=== PATIENT | female | born 1960 | race Caucasian/White ===

== ENCOUNTER 2019-06-17 13:26 | Day surgery (SDC) | payer OTHER ==
[2019-06-17] MEDS ORDERED: Depo-Medrol 40 MG/ML IM ONE (13:27)
[2019-06-17] MEDS ORDERED: Marcaine 0.5% SDV 10 ML IM ONE (13:27)
[2019-06-17] MEDS ORDERED: Xylocaine 1% Vial 30 ML PF IJ ONE (13:27)
--- NOTE | 2019-06-17 16:21 | XRAY ---
Indication: Left knee injection. Intraoperative fluoroscopy was provided for 15 seconds. Single digital spot image submitted for interpretation demonstrates needle tip projecting over the left femur intercondylar notch. Small amount of contrast injected for needle tip placement. Correlate with intraoperative findings/report.
--- NOTE | 2019-06-17 16:23 | XRAY ---
Indication: Right knee injection. Intraoperative fluoroscopy was provided for 10 seconds. Single digital spot image submitted for interpretation demonstrates needle tip projecting over the right femur intercondylar notch. Small amount of contrast injected for needle tip placement. Correlate with intraoperative findings/report.
--- NOTE | 2019-06-17 16:23 | XRAY ---
10 seconds of fluoroscopy was used in surgery for a right intra-articular knee injection.
--- NOTE | 2019-06-17 16:33 | XRAY ---
15 seconds of fluoroscopy was used in surgery for a left intra-articular knee injection.
== END 2019-06-17 15:17 | disposition home or self-care (01) ==
LOC: SDC-PAIN 13:26
PROVIDERS: ATTEND Psychiatry & Neurology Pain Medicine
DX: M17.0 Bilateral primary osteoarthritis of knee (principal); I10 Essential (primary) hypertension; G62.9 Polyneuropathy, unspecified; L03.90 Cellulitis, unspecified; Z79.899 Other long term (current) drug therapy
CPT/HCPCS: 20610; 73560; 77002; J1030; J2001; Q9966

== ENCOUNTER 2019-09-30 13:08 | Day surgery (SDC) | payer OTHER ==
[2019-09-30] MEDS ORDERED: Marcaine 0.5% SDV 10 ML IM ONE (13:09)
[2019-09-30] MEDS ORDERED: Depo-Medrol 40 MG/ML IM ONE (13:09)
[2019-09-30] MEDS ORDERED: Xylocaine 1% Vial 30 ML PF IJ ONE (13:09)
--- NOTE | 2019-09-30 15:16 | XRAY ---
Indication: Right knee injection. Intraoperative fluoroscopy was provided for 8 seconds. Single digital spot images submitted for interpretation demonstrates needle tip projecting over the right femur intercondylar notch. Small amount of contrast injected for needle tip placement. Correlate with intraoperative findings/report.
--- NOTE | 2019-09-30 15:16 | XRAY ---
Indication: Left knee injection. Intraoperative fluoroscopy was provided for 7 seconds. Single digital spot images submitted for interpretation demonstrates needle tip projecting over the left femur intercondylar notch. Small amount of contrast injected for needle tip placement. Correlate with intraoperative findings/report.
--- NOTE | 2019-09-30 15:20 | XRAY ---
8 seconds fluoroscopy time in surgery for right knee injection.
--- NOTE | 2019-09-30 15:20 | XRAY ---
7 seconds fluoroscopy time in surgery for left knee injection.
== END 2019-09-30 14:40 | disposition home or self-care (01) ==
LOC: SDC-PAIN 13:08
PROVIDERS: ATTEND Psychiatry & Neurology Pain Medicine
DX: M17.0 Bilateral primary osteoarthritis of knee (principal); I10 Essential (primary) hypertension; G62.9 Polyneuropathy, unspecified; L03.90 Cellulitis, unspecified; Z79.899 Other long term (current) drug therapy
CPT/HCPCS: 20610; 73560; 77002; J1030; J2001; Q9966